=== PATIENT | female | born 1970 | race Caucasian/White ===

== ENCOUNTER 2023-11-15 13:25 | Emergency (ER) | payer OTHER ==
[2023-11-15 13:29] VITALS: BP 133/73; PULSE 76; RESP 18; TEMP 98.1; BMI 32.5
[2023-11-15] MEDS ORDERED: LIDOCAINE 4% PATCH TP ONE (14:43)
[2023-11-15] MEDS ORDERED: ACETAMINOPHEN 325 MG TABLET (FP) ONE (14:43)
[2023-11-15] MEDS ORDERED: KETOROLAC TROMETHAMINE 30 MG/1 ML VIAL ONE (14:43)
[2023-11-15] MEDS ORDERED: METHOCARBAMOL 500 MG TABLET ONE (14:43)
[2023-11-15] MEDS: KETOROLAC TROMETHAMINE 30 MG/1 ML VIAL IM ONE (14:51)
[2023-11-15] MEDS: ACETAMINOPHEN 500 MG TABLET (FP) PO ONE (14:51)
[2023-11-15] MEDS: LIDOCAINE 5% TOPICAL PATCH TP ONE (14:51)
[2023-11-15] MEDS: METHOCARBAMOL 750 MG TAB PO ONE (14:51)
[2023-11-15] MEDS ORDERED: LIDOCAINE PATCH REMOVAL MC SCH (22:00)
== END 2023-11-15 16:48 | disposition home or self-care (01) ==
LOC: JER 13:25
PROC: 3E0233Z Introduction of Anti-inflammatory into Muscle, Percutaneous Approach (ICD-10-PCS; principal; 2023-11-15)
DX: M25.561 Pain in right knee (principal); M25.562 Pain in left knee; M79.602 Pain in left arm; M54.6 Pain in thoracic spine; S43.402A Unspecified sprain of left shoulder joint, initial encounter; Y04.8XXA Assault by other bodily force, initial encounter; Y93.01 Activity, walking, marching and hiking
CPT/HCPCS: 73030-TC-LT-FY; 73090-TC-LT-FY; 73110-TC-LT-FY; 73130-TC-LT-FY; 73130-TC-RT-FY; 73562-TC-LT-FY; 73562-TC-RT-FY; 99284-25